=== PATIENT | female | born 1950 | race Caucasian/White ===

== ENCOUNTER 2021-12-05 09:58 | Day surgery (SDC) | payer MEDICARE, SELFPAY ==
[2021-11-22 08:55] VITALS: BMI 30.1
[2021-12-05] VITALS (15 sets, daily range): BP systolic 128–197; BP diastolic 60–87; PULSE 69–86; RESP 9–23; TEMP 36.1–36.6; O2SAT 93–99; BMI 29.5
--- NOTE | 2021-12-05 06:00 | DI.RAD.S_ITS ---
PROCEDURE: XR KNEE LT 1TO2V INDICATIONS: prosthesis placement TECHNIQUE: 2 view(s) of the knee acquired. COMPARISON: [facility], , KNEE 1-2 VIEWS RIGHT, 01/16/2015, 10:33. FINDINGS: Bones: Patient is status post knee joint arthroplasty. Hardware components are in expected positions. Visualized bony structures are intact. Soft tissues: Overlying postoperative changes are noted. IMPRESSION: Status post left total knee arthroplasty without evidence for acute hardware complication. Dictated by: Jose Elias Nur M.D. on 12/05/2021 at 13:45 Approved by: Jose Elias Nur M.D. on 12/05/2021 at 13:45
--- NOTE | 2021-12-05 10:24 | PM.PREOP ---
Pre-operative Note COVID-19 COVID-19 status: Negative Result date/Date tested (Pos, Neg/Pending): 12/03/21 Interval Note History & Physical reviewed/Exam performed by Physician: Yes Changes to H&P: No
[2021-12-05] MEDS: CELECOXIB 200 MG CAPSULE PO (10:32)
[2021-12-05] MEDS: ACETAMINOPHEN 325 MG TABLET 975 MG PO (10:32)
[2021-12-05] MEDS: PREGABALIN 75 MG CAPSULE PO (10:32)
[2021-12-05] MEDS: LACTATED RINGERS 1,000 ML 42 ML IV (10:34)
[2021-12-05] MEDS: CEFAZOLIN 2 GM/100 ML PREMIX 100 ML IV ×2 (11:00→19:05)
--- NOTE | 2021-12-05 11:25 | SUR.OPER ---
Supine on padded OR bed. Pillow under head, arms secured on padded armboards <90 degree abduction. Safety belt across torso. Non-operative leg secured with tape over blanket over lower leg. Operative leg secured in [employer] positioner. Foam padded brace at thigh of operative leg.
[2021-12-05] MEDS: BUPIVACAINE 0.25% (PF) 60 ML, EPINEPHrine 0.3 MG INJ (11:30)
[2021-12-05] MEDS: BUPIVACAINE LIPOSOME 266 MG/20 ML VIAL INJ (11:31)
[2021-12-05] MEDS: MORPHINE 4 MG/ML INJ INJ (11:31)
--- NOTE | 2021-12-05 12:32 | P.OP_ITS ---
Operative Date/Time/Diagnoses Date of procedure: 12/05/21 Time of procedure: 12:32 Pre-op diagnosis: Left knee osteoarthritis Post-op diagnosis: same Procedure & Clinicians Procedure: Left total knee replacement Same procedure as scheduled: Yes Indications: The patient has had progressively worsening left knee pain with radiographic changes consistent with arthritis. Non-operative management has failed and the patient has requested total knee replacement. The risks, benefits and alternatives to surgery were discussed with the patient prior to proceeding. Risks discussed included, but were not limited to, failure to relieve pain, stiffness, infection, nerve damage, deep venous thrombosis, pulmonary embolism, stroke, coma, heart attack, permanent paralysis and , as well as the potential need for eventual revision of the prosthetic. Surgeon: Beto Sinclair Global Climate Change Researcher: Merline Recio Yes if Unassisted: No Anesthesia Type: General, Spinal and Local Operative Notes Findings: Severe medial and moderate patellofemoral osteoarthritis with relative preservation of the lateral compartment. Closure Type: primary Specimen(s): none sent Prosthetic devices, grafts, tissues, transplants, or devices: Implants used in this procedure were manufactured by the [employer] and [employer] and included the BCS II Journey total knee replacement with a size 4 left cobalt chromium femoral component, a size 3 left non porous tibial base plate, a 9 mm cross-linked polyethylene tibial insert and a 32 mm oval Sandy II patella. Applied: implant(s) Estimated Blood Loss (mL): 25 Blood products transfused: none Tourniquet time (min): 49 Procedure in detail: The patient was seen in the pre-operative area, where the left knee was identified as the operative site and this was marked with my initials. The patient received pre-operative antibiotics, and was taken to the operating room and placed on the operative table in the supine position. After satisfactory anesthesia, a night time nanny out was performed. The left leg was encircled with a tourniquet about the proximal thigh, and the leg was prepared from the toes to the tourniquet with ChloroPrep in the usual fashion and draped through sterile drapes. The leg was elevated and exsanguinated with Eschmark bandage and the tourniquet inflated to 250 mmHg pressure. The knee was approached through an approximately 18 cm incision centered over the patella and carried into the knee through a medial parapatellar arthrotomy. The anterior osteophytes and soft tissues were removed. The rotational landmarks of [place]'s line and the transepicondylar axis were marked on the femur with electrocautery, and intramedullary guide holes for the femur and tibia were created. The distal femoral cut was made in 6 degrees of valgus using the intramedullary guide at the primary cut setting. The proximal tibial cut was then made using the intramedullary guide, taking 9 mm of bone off the less involved side. The extension gap was checked and the rotation of the femoral component confirmed with the gap balancing blocks. The anterior, posterior and chamfer cuts were then made. The posterior osteophytes and soft tissues were then removed. The posterior capsule was injected with part of a mixture of 60 ml 0.25% Marcaine mixed with 20 ml Exparel and 4 mg of morphine for post-operative pain control. The remainder of this mixture was injected into the capsule and subcutaneous tissues during cement curing. The tibia was prepared with the rotation set by an extra medullary guide. Trial tibial and femoral components were then placed and the intercondylar notch cut through the femoral trial. Range of motion was 0-125 degrees, with good stability throughout the range. The patella was then cut to accommodate the patellar prosthetic. There was no need for a lateral release. The trials were then removed, and the femoral hole plugged with a bone plug. The bone was prepared with pulsatile lavage, and dried with a sponge. Cement was applied and the final prosthetics placed. Excess cement was removed during and after cement curing. After confirming there was no extruded cement posteriorly, the final tibial insert was placed. The knee was copiously irrigated and the tourniquet deflated. Hemostasis was obtained. The capsule was closed with interrupted # 2 polyester sutures. The subcutaneous layer was closed with 3-0 Vicryl, and the skin with a running 3-0 V-Lock suture and Dermabond. An Aquacel Ag dressing was applied and the patient was taken to recovery having tolerated the procedure well. The services of a skilled staffing assistant were necessary during this case to provide exposure and positioning of the limb for optimal treatment of the patient. The case could not be completed expediently without the services of Ms. Gonsalez. Complications: none Post-operative Condition: stable Disposition: PACU Plan for aftercare: The patient will be maintained on a standard total knee replacement protocol with weight bearing as tolerated. The patient will receive aspirin and sequential compression devices for DVT prophylaxis. The patient will be discharged home when safe for the home environment.
--- NOTE | 2021-12-05 15:20 | PT.IIE ---
Current Diagnoses Unilateral primary osteoarthritis, left knee (12/05/21) Surgery Performed Operation Date: 12/05/21 12:15 Actual Procedures p Left Total Knee Arthroplasty(Left) - Beto Sinclair MD Surgical History (Last Reviewed 12/05/21 @ 10:02 by Imani Sweeney, TOSHIA) History of hysterectomy History of total right knee replacement (12/2014) Hx of sinus surgery Hx of tonsillectomy Medical History (Last Updated 11/22/21 @ 09:21 by Melyssa Charles RN) COVID-19 virus infection (~2019) Depression Diabetes Heartburn HLD (hyperlipidemia) HTN (hypertension) Osteoarthritis Seasonal allergies Physical Therapy Inpatient Evaluation/Re-Eval M1 PT/OT-IP Prior Functional Status Start: 12/05/21 15:34 Freq: NEEDED Status: Active Protocol: Document 12/05/21 15:20 AB (Rec: 12/05/21 15:36 AB [id number]) Medical Review Prior Functional Status Medical History Reviewed Yes Communication able to make needs known Mobility and Gait pt stated that she is independent with all mobilities and ambualtion withotu AD Social History Household Members spouse Living Arrangements House Number of Floors (Floors) One Floor Number of Stairs To Enter/Railing? 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 M2 PT-IP Current Condition Start: 12/05/21 15:34 Freq: NEEDED Status: Active Protocol: Document 12/05/21 15:20 AB (Rec: 12/05/21 16:49 AB [id number]) Physical Therapy Current Condition Current Condition Evaluation Date 12/05/21 Treatment Diagnosis s/p L TKA; difficulty in walking Onset Date 12/05/21 M3 PT-IP Subjective Start: 12/05/21 15:34 Freq: NEEDED Status: Active Protocol: Document 12/05/21 15:20 AB (Rec: 12/05/21 16:49 AB [id number]) Subjective Physical Therapy Visit Type Type Initial Evaluation Visit Start Time 15:20 Visit Stop Time 16:40 Total Visit Minutes 55 Notes pt seen for split visits: 1520 to 1530 and 1555 to 1640 Number of RADIOGRAPHY TECHNICIAN Visits 0 Physical Therapy Visit Comments Patient Comments pt is agreeable to do PT Therapy Pain Assessment Pain Present Pain Present Denied Pain M4 PT-IP Mobility and Gait Start: 12/05/21 15:34 Freq: NEEDED Status: Active Protocol: Document 12/05/21 15:20 AB (Rec: 12/05/21 16:49 AB [email or web address]) PT-Bed Mobility Assessment Supine to Sit Supine to Sit Standby Assistance Sit to Supine Sit to Supine Standby Assistance PT-Transfer Assessment Sit to and From Stand Sit to and from Stand Moderate Assistance,Maximum Assistance,1 Person Assistance ,Use of Upper Extremities Equipment Transfer Assistive Device Front Wheeled Walker Orthotic/Prosthetic Devices or Brace: No Comments Mobility Comments BP in supine: 181/83. pt completed supine to sit SBA. c /o nausea: 171/79. nurse in room and gave nausea medication. pt sat on eOB SBA. agreed to stand and completed sit to stand x 2 attempts max A and cues. mod to max A for initial standing balance using FWW for support. pt ambulated 2 ft forward using FWW mod to max A and c/o dizziness and instructed to backup onto the bed and was also able to take sidestepping towards HOB mod to max A and cues. pt completed sit to supine SBA. positioned pt in bed. call light and table placed within reach. BP checked: 157/82. ice pack provided. caregiver training set up at 1030 am tomorrow. Gait Assessment Gait Gait Assistance Required: Moderate Assistance,Maximum Assistance,1 Person Assist Distance (Feet) 4 Able to Maintain Weight Bearing Status Yes During Gait Assistive Devices Assistive Device Gait Belt,Front Wheeled Walker Orthotic/Prosthetic Devices or Brace: No Gait Deviations General Gait Pattern Decreased Stride Length, Decreased Feet Clearance,Step- to Gait Factors Limiting Gait Function Factors Limiting Gait Function Decreased Activity Tolerance, Decreased Sensation,Decreased Strength,Limited Range of Motion,Pain,Poor Balance,Poor Safety Awareness PT-Balance Assessment Sitting Balance and Reactions Static Sitting Balance Ability Normal Dynamic Sitting Balance Ability Good Standing Balance and Reactions Static Standing Balance Ability Fair Dynamic Standing Balance Ability Poor Device Used FWW M5 PT-IP Objective Assessments Start: 12/05/21 15:34 Freq: NEEDED Status: Active Protocol: Document 12/05/21 15:20 AB (Rec: 12/05/21 16:49 AB [email or web address]) Orientation Orientation/Cognition Level of Alertness Alert Orientation Name,Place,Situation Language Function Ability No Deficits Noted Safety Awareness Decreased Safety Awareness Memory Description No Deficits Noted Gross Range of Motion Lower Extremity ROM Assessment Left Impaired Impairments L knee flexion: 90 deg Strength Lower Extremity Strength Hip 4-/5 Knee 4-/5 Sensation Assessment Sensation Sensation Description Numbness Comments Sensation Comments slight numbness on LLE Muscle Tone Muscle Tone WNL Yes M6 PT-IP Treatment Start: 12/05/21 15:34 Freq: NEEDED Status: Active Protocol: Document 12/05/21 15:20 AB (Rec: 12/05/21 16:49 AB [email or web address]) Physical Therapy Treatment Education Education Provided Precautions,Weight Bearing Status,Post-Op Packet,Safety M7 PT-IP Assessment and Plan Start: 12/05/21 15:34 Freq: NEEDED Status: Active Protocol: Document 12/05/21 15:20 AB (Rec: 12/05/21 16:49 AB [email or web address]) PT Summary Assessment and Plan Potential Rehabilitation Potential Good Status of Condition at Evaluation Evolving Summary Impairments Pain,ROM,Strength,Balance, Coordination,Sensation,Tone, Cognition,Bed Mobility, Transfers,Gait,Activity Tolerance Assessment Summary pt requiring mod to max A with mobility and unable to tolerate much activity with c/ o nausea and lightheadness. pt just had surgery this morning s/p L TKA. caregiver training set up at 1030am tomorrow. will continue to assess progress. Goals Bed Mobility Goal Independent Transfer Goal Independent,Front Wheeled Walker Gait Goal Independent,Front Wheel Walker Gait Distance 200 Other Goals up/down 1 step using fWW SBA Days to Meet Goals 5 Frequency of Treatment Frequency Of Treatment Twice a Day Treatment Plan Physical Therapy Treatment Plan Bed Mobility Training,Transfer Training,Gait Training, Therapeutic Exercise,Balance Retraining,Post Op Education, Discharge Planning,Hot or Cold Pack,Neuromuscular Re-ed, Coordination Retraining,Manual Therapy Weight Bearing Status Weight Bearing Status Weight Bear as Tolerated Allowed Weight Bearing Amount (enter % LLE wBAT or #) (%) Recommendations To Nursing Amount of Assist Needed 1 Person Assist Discharge Recommendations PT Discharge Recommendations Home with Assistance, Outpatient PT Transportation Needs at Discharge Private Vehicle
[2021-12-05] MEDS: buPROPion XL 150 MG TAB 300 MG PO (15:48)
[2021-12-05] MEDS: VENLAFAXINE ER 75 MG CAP 150 MG PO (15:49)
[2021-12-05] MEDS: LACTATED RINGERS 1,000 ML 100 ML IV (15:52)
[2021-12-05] MEDS: hydroCHLOROthiazide 25 MG TABLET 12.5 MG PO (16:01)
[2021-12-05] MEDS: ONDANSETRON 4 MG/2 ML INJ IV (16:25)
[2021-12-05] MEDS: INSULIN LISPRO 100 UNIT/ML 3ML VIAL SUBCUT ×2 (17:14→21:39)
[2021-12-05] MEDS: INSULIN GLARGINE 100 UNIT/ML 3ML PEN 10 UNIT SUBCUT (17:14)
--- NOTE | 2021-12-05 18:16 | PC.NURSE ---
Pt arrived from PACU this afternoon. She is A&Ox3, VSS, on RA, afebrile. She reports initial numbness to B LE's from naval down. She is gradually able to increase movement of her legs and gains normal sensation to BLEs. Kian wrap to L knee is C/D/I. LR at 100 ml/hr. She is able to get out of bed with PT and void. UPon initial sitting at edge of the bed she feels diaphoretic and nauseated. BP is WNL and she is given zofran and a fan for nausea. Her BG after very late lunch was 270 she ate a large dinner but then vomitted 700cc. LR at 100 ml/hr continuous monitoring.
[2021-12-05] MEDS: ACETAMINOPHEN 325 MG TABLET 650 MG PO (19:00)
[2021-12-05] MEDS: OXYCODONE/ACETAMINOPHEN 5/325 TABLET 1 TAB PO (21:31)
[2021-12-05] MEDS: ASPIRIN EC 81 MG TABLET PO (21:32)
[2021-12-05] MEDS: DOCUSATE 100 MG CAPSULE PO (21:32)
[2021-12-05] MEDS: carvediloL 12.5 MG TABLET 25 MG PO (21:32)
[2021-12-05] MEDS: METFORMIN HCL 500 MG TABLET 1000 MG PO (21:32)
[2021-12-05] MEDS: GABAPENTIN 300 MG CAPSULE PO (21:32)
[2021-12-05] MEDS: diphenhydrAMINE 50 MG/ML VIAL 25 MG IV (23:15)
[2021-12-05] MEDS: HYDROMORPHONE 2 MG TABLET PO (23:23)
[2021-12-06] MEDS: OXYCODONE/ACETAMINOPHEN 5/325 TABLET 1 TAB PO ×2 (02:10→08:44)
[2021-12-06] MEDS: diphenhydrAMINE 50 MG/ML VIAL 25 MG IV (02:16)
[2021-12-06] MEDS: CEFAZOLIN 2 GM/100 ML PREMIX 100 ML IV (02:48)
[2021-12-06 03:00] VITALS: BP 130/61; PULSE 78; RESP 16; TEMP 36.5; O2SAT 94
[2021-12-06] MEDS: ACETAMINOPHEN 325 MG TABLET 650 MG PO ×2 (06:10→11:40)
[2021-12-06 06:14] VITALS: RESP 16; O2SAT 94
[2021-12-06 07:39] LABS: Hematocrit 32.2 % (36-46); Hemoglobin 11.1 g/dL (12.0-16.0)
--- NOTE | 2021-12-06 07:43 | PM.DS.1 ---
History of Present Illness History of Present Illness Date Patient Seen: 12/06/21 Time Patient Seen: 07:43 Chief complaint: OPB Narrative: History and physical is contained in the chart previously completed note. Please refer to that note for this information. Discharge Providers Provider Date of admission: December 05, 2021 Discharge Date: 12/06/21 Primary care physician: Masha Mojica MD Consults: 12/05/21 13:34 Consult to Discharge Planning Routine Comment: Consult to Physical Therapy Evaluate & Treat Comment: Physician Instructions: postop TKA protocol Consult to Respiratory Therapy Evaluate & Treat Comment: Physician Instructions: Evaluate and treat Discharge provider: Beto Sinclair MD Summary Hospital Course Discharge Diagnosis: 1. Left knee osteoarthritis 2. Post hemorrhagic anemia Hospital Course: The patient was admitted to the hospital and taken directly to the operating room on December 05, 2021. She underwent a left total knee replacement without complications. She was comfortable on postoperative day 1 and had been able to make it to the bathroom with minimal assistance overnight. She had a mild post hemorrhagic anemia on lab tests on postop day 1. Status at Discharge Cognitive/behavioral status at discharge: oriented Functional status at discharge: uses cane/walker Overall status at discharge: patient is progressing back to baseline Time Spent with Patient Time spent: Less than 30 minutes Exam Vital Signs (past 8 hours): - 12/06/21 03:00 12/06/21 06:14 Temperature 97.7 F Pulse Rate 78 Respiratory Rate 16 16 Blood Pressure 130/61 Pulse Oximetry 94 94 Oxygen Flow Rate 0 0 Oxygen Delivery Method Room Air Oxygen Flow Rate 0 Narrative Exam Narrative: Left knee wound is dressed with no drainage on the bandage. Calf is soft. Light touch and motion are intact in the left lower extremity. Objective Labs Result Diagrams: 12/06/21 07:17 Labs: Laboratory Results - last 24 hr 12/06/21 07:17 Hgb 11.1 L Hct 32.2 L PFSH Medical History (Updated 11/22/21 @ 09:21 by Melyssa Charles RN) COVID-19 virus infection (~2019) Depression Diabetes Heartburn HLD (hyperlipidemia) HTN (hypertension) Osteoarthritis Seasonal allergies Surgical History History of hysterectomy History of total right knee replacement (12/2014) Hx of sinus surgery Hx of tonsillectomy Social History household members: spouse Smoking Status: Never smoker alcohol intake: current Discharge Assessment & Plan Assessment and Plan Assessment: Stable postoperative day 1 status post left total knee replacement. She is a mild post hemorrhagic anemia that should not require specific treatment. Plan of Treatment: Discharge to home. Follow up in my office in 10-14 days. A prescription for oxycodone has been sent to [email or web address]. She is also been instructed in the use of Tylenol and anti-inflammatories as well as aspirin which is for DVT prophylaxis. Discharge Plan Discharge Plan Patient Disposition: Home Discharge orders & Medications Discharge Orders: Discharge (Order); Ordered 12/06/21 Ordered By: Beto Sinclair Prescriptions: New aspirin 81 mg Tablet,Delayed Release (Dr/Ec) 81 mg PO BID Qty: 84 0RF oxycodone 5 mg Tablet 5 mg PO Q4H PRN (Reason: Pain, Moderate (4-6)) Qty: 40 0RF Continued losartan 50 mg Tablet 50 mg PO DAILY carvedilol 25 mg Tablet 25 mg PO BID Rx Instructions: must administer with a meal/food meloxicam 15 mg Tablet 15 mg PO DAILY venlafaxine 150 mg Capsule,Extended Release 24hr 150 mg PO QAM metformin 1,000 mg Tablet 1,000 mg PO BID gabapentin 300 mg Capsule 300 mg PO BEDTIME fluticasone propionate 50 mcg/actuation [place],Suspension 2 spray INTRANASAL DAILY Rx Instructions: administer into each nostril rosuvastatin 20 mg Tablet 20 mg PO DAILY bupropion HCl 300 mg Tablet Extended Release 24 Hr 300 mg PO QAM hydrochlorothiazide 12.5 mg Tablet 12.5 mg PO QAM insulin glargine [Lantus Solostar U-100 Insulin] 100 unit/mL (3 mL) Insulin Pen 10 unit SUBCUT QPM Victoza 2-Clark 0.6 mg/0.1 mL (18 mg/3 mL) Pen Injector 1.8 mg SUBCUT Q24H Jardiance 25 mg Tablet 25 mg PO QAM diphenhydramine-acetaminophen [Acetaminophen PM] 25-500 mg Tablet 2 tab PO BEDTIME acetaminophen 500 mg Capsule 1,000 mg PO BID Follow up/Referrals: Masha Mojica MD [Primary Care Provider] - Beto Sinclair MD [Physician] - As previously scheduled (Follow up with Dr Sinclair on 12/18/2021 @ 1:00 pm at [facility] office in [place].) Diet/Activity/Treatments Diet: Diet as Tolerated and Carb-consistent/Diabetic Activity: Walk frequently! Cold/Heat Therapy: Ice to knee as needed for pain. Skin/Wound/Dressing Care Report to your healthcare provider any signs of infection, such as:: chills, fever, night sweats, unusual drainage and unusual redness Dressing: May remove SHIV wrap and shower on 12/08/2021. Leave Aquacel dressing in place until follow up in office. No bathing or otherwise soaking incision. Contact the office if the central strip of the deep dressing becomes saturated with either water or blood. Visit Report/Discharge Packet Instructions: DI for Knee Replacement Stand Alone Forms: Surgery Discharge Discharge Data Primary Care Provider: Masha Mojica Attending Provider: Beto Sinclair
[2021-12-06] MEDS: INSULIN LISPRO 100 UNIT/ML 3ML VIAL SUBCUT ×2 (08:38→11:49)
[2021-12-06] MEDS: DOCUSATE 100 MG CAPSULE PO (08:39)
[2021-12-06] MEDS: ASPIRIN EC 81 MG TABLET PO (08:40)
[2021-12-06] MEDS: buPROPion XL 150 MG TAB 300 MG PO (08:40)
[2021-12-06] MEDS: MELOXICAM 7.5 MG TABLET 15 MG PO (08:40)
[2021-12-06] MEDS: carvediloL 12.5 MG TABLET 25 MG PO (08:40)
[2021-12-06 08:41] VITALS: BP 117/47; PULSE 77; RESP 17; TEMP 36.1; O2SAT 95
[2021-12-06] MEDS: hydroCHLOROthiazide 25 MG TABLET 12.5 MG PO (08:41)
[2021-12-06] MEDS: METFORMIN HCL 500 MG TABLET 1000 MG PO (08:41)
[2021-12-06] MEDS: VENLAFAXINE ER 75 MG CAP 150 MG PO (08:43)
[2021-12-06] MEDS: FLUTICASONE 120 SPRAY/16 GM SPRAY.SUSP NASAL (08:43)
[2021-12-06 09:06] VITALS: BP 117/47
--- NOTE | 2021-12-06 09:30 | CM.DANOTE ---
DCP: Case received, EMR reviewed and met with patient. Introduced self and role. Was able to obtain information regarding patient's baseline activity status prior to hospitalization. DCP assessment completed with information currently available. Patient is a 71 year old female who admitted yesterday morning to the care of the orthopedic team. PCP: Dr. Mojica. Payer: confirmed: [facility] Patient came to the hospital via private vehicle for a surgical procedure. Patient had a left total knee replacement. She has history of left knee osteoartiitis. Met with patient in her room. She is alert and oriented, pleasant, and sitting up in bed having her breakfast. Confirmed that she resides in [place] with spouse, Cleve. At her baseline, she does have a FWW and cane if needed. She confirms that spouse will be able to assist her when she goes home. P: Patient has discharge orders for today. She will work again with P.T. before going home. Meche Cain RN/Technical Expert Discharge Planning/Care Management Advanced directive, confirm from CLINIC Start: 12/05/21 16:51 Freq: Q24H Status: Active Protocol: Document 12/05/21 16:51 EJ (Rec: 12/05/21 17:26 EJ [id number]) Advance Directive, confirm on record Time 17:26 Person contacted PT Copy received No CM Discharge Assessment Start: 12/06/21 09:29 Freq: Status: Active Protocol: Document 12/06/21 09:29 (Rec: 12/06/21 09:30 [id number]) Discharge Planning Assessment Assigned Handyperson Meche Cain RN/Technical Expert Advance Directives? Yes Advance Directives on File Yes History Provided By Patient,Medical Record Prior Living Arrangements House Household Members spouse Type of transporation used prior to Drives own vehicle admit Independent with ADL's Yes Is patient alert and oriented? Yes Caregiver for Another No DME Already Rented / Owned FWW / Walker,Cane Patient/Family Preference OP PT Therapy Barriers to Discharge No Discharge Plan Home Transportation Arrangement Partner Referrals Initiated None needed Whiteboard Updated in Patient Room with Yes name and ext. # of Handyperson Review Status In Process Next Review Type Continued Stay Review Pre-Anesthesia Assessment Start: 11/22/21 08:55 Freq: Status: Active Protocol: Document 11/22/21 08:55 CAB (Rec: 11/22/21 09:50 [facility] [id number]) Pre-Anesthesia Assessment Patient Information Reviewed Via Phone Assessment Assessment Completed With Patient Comment Pt states labs/ECG done w/PCP, not here-COVID screen in [place] [place] 12/03 Primary Care Provider Masha Mojica Seen Specialist in Last 12 Months Yes Specialist Seen Orthopedist Primary Language Ukrainian Alining Inspector Required No Height 5 ft 3 in Weight 170 lb Body Mass Index (BMI) 30.1 Hearing Ability Normal Visual Assist Glasses Dentition Type Teeth, Natural Present Barriers to Learning None Comment Temporary lower front tooth* * Hx Anesthesia Reactions Temporary lower front tooth* * Hx Family Anesthesia Reaction No Hx Malignant Hyperthermia No Hx Blood Transfusions No Anesthesia Review Requested No Stitch Welder No alcohol intake current alcohol intake frequency a few times a month Smoking Status Never smoker Substance Use Type does not use Pain Present Pain Reported Musculoskeletal Symptoms Abnormal Gait,Difficulty Walking,Joint Pain History of Falling (Recent or History of No ) Patient is completely paralyzed or No completely immobile Mental Status Oriented to own ability Is patient on oxygen? No Does patient have RAMACHANDRAN/SOB No Hx Sleep Apnea No Currently Taking a Beta Kathleen Yes: Carvedilol Can You Climb a Flight of Stairs Without Yes SOB Hx Chest Pain No Hx SOB No Hx Syncope or Dizziness No Anti-Coagulant Therapy No Has a Water Safety Instructor No Cardiac Testing No Hx Pacemaker/ICD No Pacemaker Rep Required? No Cardiac Clearance Received No Diet Type At Home Regular Dysphagia No Gastrointestinal Symptoms Constipation,Reflux Urinary Catheter Present No Hx Urinary Self Catheterization No Diabetes Yes: Pt checks blood sugar twice a day Patient No Lactating No Hx Drug Resistant Organism No Presence of External or Internal Medical Yes: Right knee prosthesis Devices Have you had any close contact with No someone diagnosed with COVID-19? Received a COVID vaccine? Yes Received all doses? Yes Marital Status Lives With spouse Current Living Arrangements House Number of Floors (Floors) One Floor Support System Spouse Does the Patient Have Assistance After Yes Surgery Patient Discharge Plan Description Return Home Comment Pt advised 1 night length of stay per surgeon Feels Safe in Current Environment Yes Been Physically Hurt or Threatened By a No Person in Current Environment Do you have thoughts of harming yourself None or others? Are you currently considering suicide? No Do you have a plan to hurt yourself or No Plan others? Do You Have Any Spiritual Beliefs That No May Affect Your HC Choices? Do You Have Any Cultural Practices That No May Affect Your HC Choices? Who Can We Speak to About Patient's Care Family, friends Identifying Code for Release of Patient Declines to issue Information Health Care Proxy/Next of Kin Cleve () Health Care Proxy Emergency Contact Name Cleve () Emergency Contact Advance Directives? Yes Advance Directives on File Yes Power of Import/Export Analyst Yes Power of Import/Export Analyst Name Cleve () Power of Import/Export Analyst PAC Instructions Diabetes instructions,Do not shave/clip surgical site, Durable medical equipment, Medications to take/avoid, Nasal antibiotic,No ETOH/ petroleum product on skin DOS, NPO,Post-op transportation,Pre -surgical wash,Sensory aids, Sturdy shoes/comfortable clothes,Do not bring valuables and remove jewelry
--- NOTE | 2021-12-06 11:00 | PT.IPTN ---
Current Diagnoses Unilateral primary osteoarthritis, left knee (12/05/21) Surgery Performed Operation Date: 12/05/21 12:15 Actual Procedures p Left Total Knee Arthroplasty(Left) - Beto Sincalir MD Physical Therapy Treatment Note M2 PT-IP Current Condition Start: 12/05/21 15:34 Freq: NEEDED Status: Active Protocol: Document 12/05/21 15:20 AB (Rec: 12/05/21 16:49 AB [id number]) Physical Therapy Current Condition Current Condition Evaluation Date 12/05/21 Treatment Diagnosis s/p L TKA; difficulty in walking Onset Date 12/05/21 M3 PT-IP Subjective Start: 12/05/21 15:34 Freq: NEEDED Status: Active Protocol: Document 12/06/21 10:22 KS (Rec: 12/06/21 12:29 KS [id number]) Subjective Physical Therapy Visit Type Type Treatment Note Visit Start Time 10: Visit Stop Time 11:00 Total Visit Minutes 38 Notes Spouse present for caregiver training Number of MAT CLEANING MACHINE OPERATOR Visits 1 Physical Therapy Visit Comments Patient Comments pt is agreeable to do PT M4 PT-IP Mobility and Gait Start: 12/05/21 15:34 Freq: NEEDED Status: Active Protocol: Document 12/06/21 10:22 KS (Rec: 12/06/21 12:29 KS [id number]) PT-Bed Mobility Assessment Supine to Sit Supine to Sit Standby Assistance Sit to Supine Sit to Supine Standby Assistance Scooting Scooting to Edge of Bed Standby Assistance PT-Transfer Assessment Sit to and From Stand Sit to and from Stand Contact Guard Assistance,1 Person Assistance,Use of Upper Extremities Equipment Transfer Assistive Device Front Wheeled Walker Orthotic/Prosthetic Devices or Brace: No Transfers Transfer Destination Bed,Toilet Transfer Technique pt ambulated Transfer Ability Level of Assist Contact Guard Assistance Comments Mobility Comments Pt in bed and spouse in room upon arrival. Pt SBA for sup<> sit and scooting EOB> Demonstrated gait belt application to pts spouse who was able to perform. Pts spouse assisted pt CGA for sit <>Stand w/ FWW. Pts BP 94/39 in standing, denied dizziness and ambulated around room and to bathroom CGA w/ FWW w/ cues for knee extension and quad facilitation. Pt returned to bedside and reported slight lightheadedness, BP 101/44. Pt completed 1x platform step w/ FWW and providing CGA and cues for sequencing and then returned to bed. Reveiwed LE exercises for blood flow, strengthening, and ROM. Discussed at home safety and OPPT. Pt left in bed w/ all needs in reach. Gait Assessment Gait Gait Assistance Required: Contact Guard Assist,1 Person Assist Distance (Feet) 50 Able to Maintain Weight Bearing Status Yes During Gait Assistive Devices Assistive Device Gait Belt,Front Wheeled Walker Orthotic/Prosthetic Devices or Brace: No Gait Deviations General Gait Pattern Decreased Stride Length, Decreased Feet Clearance,Step- to Gait Factors Limiting Gait Function Factors Limiting Gait Function Decreased Activity Tolerance, Decreased Sensation,Decreased Strength,Limited Range of Motion,Pain,Poor Balance,Poor Safety Awareness Comments Gait Comments Cues for quad activation/knee extension. Stair Climbing Assessment Evaluation Level of Assist On Stairs Contact Guard Assistance,1 Person Assistance Devices Stair Climbing Assistive Devices Front Wheel Walker Technique/Endurance Stair Climbing Direction Ascend and Descend Stair Climbing Technique Step to Step Number of Steps Climbed 1 Stair Climbing Set # Repetitions (reps) 1 Comments Stair Climbing Comments FWW PT-Balance Assessment Sitting Balance and Reactions Static Sitting Balance Ability Normal Dynamic Sitting Balance Ability Good Standing Balance and Reactions Static Standing Balance Ability Good Dynamic Standing Balance Ability Good Device Used FWW M5 PT-IP Objective Assessments Start: 12/05/21 15:34 Freq: NEEDED Status: Active Protocol: Document 12/05/21 15:20 AB (Rec: 12/05/21 16:49 AB [id number]) Orientation Orientation/Cognition Level of Alertness Alert Orientation Name,Place,Situation Language Function Ability No Deficits Noted Safety Awareness Decreased Safety Awareness Memory Description No Deficits Noted Gross Range of Motion Lower Extremity ROM Assessment Left Impaired Impairments L knee flexion: 90 deg Strength Lower Extremity Strength Hip 4-/5 Knee 4-/5 Sensation Assessment Sensation Sensation Description Numbness Comments Sensation Comments slight numbness on LLE Muscle Tone Muscle Tone WNL Yes M6 PT-IP Treatment Start: 12/05/21 15:34 Freq: NEEDED Status: Active Protocol: Document 12/06/21 10:22 KS (Rec: 12/06/21 12:29 KS [id number]) Physical Therapy Treatment Exercises Exercises Ankle Pumps,Gluteal Sets,Quad Sets,Heel Slides,Straight Leg Raises Education Education Provided Precautions,Weight Bearing Status,Post-Op Packet,Safety Other Treatments Other Treatment Performed Completed caregiver training M7 PT-IP Assessment and Plan Start: 12/05/21 15:34 Freq: NEEDED Status: Active Protocol: Document 12/06/21 10:22 KS (Rec: 12/06/21 12:29 KS [id number]) PT Summary Assessment and Plan Potential Rehabilitation Potential Good Summary Impairments Pain,ROM,Strength,Balance, Coordination,Sensation,Tone, Cognition,Bed Mobility, Transfers,Gait,Activity Tolerance Progress Towards Goals Progressing Toward Goals Assessment Summary Pt progressing well w/ mobility and able to provide assistance as needed. She has all necessary DME and was able to complete stair training. 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 She will benefit from OPPT to improve strength , activity tolerance, and ROM. Goals Bed Mobility Goal Independent Transfer Goal Independent,Front Wheeled Walker Gait Goal Independent,Front Wheel Walker Gait Distance 200 Other Goals up/down 1 step using fWW SBA Days to Meet Goals 5 Frequency of Treatment Frequency Of Treatment Twice a Day Treatment Plan Physical Therapy Treatment Plan Bed Mobility Training,Transfer Training,Gait Training, Therapeutic Exercise,Balance Retraining,Post Op Education, Discharge Planning,Hot or Cold Pack,Neuromuscular Re-ed, Coordination Retraining,Manual Therapy Weight Bearing Status Weight Bearing Status Weight Bear as Tolerated Allowed Weight Bearing Amount (enter % LLE wBAT or #) (%) Recommendations To Nursing Amount of Assist Needed 1 Person Assist Discharge Recommendations PT Discharge Recommendations Home with Assistance, Outpatient PT Transportation Needs at Discharge Private Vehicle
[2021-12-06 12:00] VITALS: BP 115/67; PULSE 60; RESP 20; TEMP 36.3
[2021-12-06] MEDS: SODIUM CHLORIDE 0.9% 500 ML 1000 ML IV (13:30)
== END 2021-12-06 14:20 | disposition home or self-care (01) ==
LOC: OR 09:59 → AC 09:59
PROVIDERS: PCP Internal Medicine; Referring Provider Orthopaedic Surgery; Visit Provider Orthopaedic Surgery
PROC: 0SRD0JZ Replacement of Left Knee Joint with Synthetic Substitute, Open Approach (ICD-10-PCS; CPT 27447; principal; 2021-12-05 12:15)
DX: M17.12 Unilateral primary osteoarthritis, left knee (principal); E11.9 Type 2 diabetes mellitus without complications; I10 Essential (primary) hypertension; E78.5 Hyperlipidemia, unspecified; Z79.84 Long term (current) use of oral hypoglycemic drugs; Z79.4 Long term (current) use of insulin
CPT/HCPCS: 27447; 36415; 73560; 82962; 85014; 85018; 94762; 97110; 97116; 97162; 97530; C1776; C1713; C9290; J0171; J0690; J1100; J1200; J1815; J2250; J2270; J2274; J2405; J2704; J3010